=== PATIENT | male | born 1955 | race Caucasian/White ===

== ENCOUNTER 2019-12-09 12:34 | Emergency (ER) | payer MEDICARE, MEDICAID ==
[~2019-12-09] VITALS: Ht 167.6 cm; Wt 91.0 kg
[2019-12-09] MEDS ORDERED: OLAN2.5T3 PO (12:46)
[2019-12-09] MEDS ORDERED: LISI10TA5 PO (12:46)
[2019-12-09] MEDS ORDERED: DULO30CA2 PO (12:46)
[2019-12-09] MEDS ORDERED: DIVA250T4 PO (12:46)
[2019-12-09] MEDS ORDERED: GABA-531 PO (12:46)
[2019-12-09] MEDS ORDERED: ASPI-864 PO (12:46)
[2019-12-09] MEDS ORDERED: ACETAMINOPHEN 325MG TABLET PO ONE (13:30)
[2019-12-09 16:07] VITALS: BP 130/80
== END 2019-12-09 17:27 | disposition home or self-care (01) ==
LOC: ER 12:34
DX: M54.89 Other dorsalgia (principal); I10 Essential (primary) hypertension; E11.9 Type 2 diabetes mellitus without complications; I25.10 Atherosclerotic heart disease of native coronary artery without angina pectoris; Z95.1 Presence of aortocoronary bypass graft; Z98.890 Other specified postprocedural states; Z79.82 Long term (current) use of aspirin; Z79.899 Other long term (current) drug therapy
CPT/HCPCS: 71045; 99283

== ENCOUNTER 2020-05-15 14:41 | Emergency (ER) | payer MEDICARE, MEDICAID ==
[~2020-05-15] VITALS: Ht 167.6 cm; Wt 90.0 kg
[~2020-05-15 14:41] MED LIST: ASPI-864 PO; DIVA250T4 PO; DULO30CA2 PO; GABA-531 PO; LISI10TA5 PO; OLAN2.5T3 PO
[2020-05-15] MEDS ORDERED: ONDANSETRON HCL 4MG/2ML INJ IV STA (15:08)
[2020-05-15] MEDS ORDERED: SODIUM CHLORIDE 0.9% 1,000 ML IV ONE (15:08)
[2020-05-15 16:01] LABS: CHLORIDE 100 mEq/L (98-107)
[2020-05-15 16:02] LABS: BASOPHILS % 0.9 % (0.0-2.0); EOSINOPHILS % 2.1 % (0.0-5.0); HEMATOCRIT. 41.4 % (42.0-52.0); HEMOGLOBIN. 14.1 g/dL (14.0-18.0); LYMPHOCYTES % 42.7 % (20.0-50.0); MEAN CORPUSCULAR HEMOGLOBIN 31.5 pg (28.0-32.0); MEAN CORPUSCULAR VOLUME 92.7 fL (80.0-94.0); MEAN PLATELET VOLUME 8.7 fl (7.4-10.4); NEUTROPHILS % 45.3 % (40.0-76.0); PLATELET 232 x1000/uL (130-400); RED BLOOD CELL COUNT 4.46 mill/uL (4.7-6.1); RED CELL DISTRIBUTION WIDTH 13.8 % (11.6-14.6)
[2020-05-15 16:03] LABS: CLARITY URINE CLEAR (CLEAR); COLOR URINE YELLOW (YELLOW); KETONES URINE NEGATIVE (NEGATIVE); LEUKOCYTE ESTERASE URINE NEGATIVE (NEGATIVE); NITRITE URINE NEGATIVE (NEGATIVE); OCCULT BLOOD URINE NEGATIVE (NEGATIVE); PH URINE 6.5 (4.5-8.0); PROTEIN URINE NEGATIVE (NEGATIVE); SPECIFIC GRAVITY URINE 1.018 (1.005-1.030)
[2020-05-15 16:05] LABS: PROTHROMBIN TIME 10.6 sec (9.6-11.0)
[2020-05-15 17:33] VITALS: BP 154/83
== END 2020-05-15 17:36 | disposition home or self-care (01) ==
LOC: ER 14:41
DX: B34.9 Viral infection, unspecified (principal); Z20.828 Contact with and (suspected) exposure to other viral communicable diseases; E11.9 Type 2 diabetes mellitus without complications; I10 Essential (primary) hypertension; Z88.0 Allergy status to penicillin; Z88.8 Allergy status to other drugs, medicaments and biological substances
CPT/HCPCS: 36415; 71045; 80053; 81003; 83690; 84484; 85025; 85610; 93005; 96360; 99284; J7030; U0003; C9803-CS

== ENCOUNTER 2021-04-18 13:05 | Emergency (ER) | payer MEDICARE, MEDICAID ==
[~2021-04-18] VITALS: Ht 167.6 cm; Wt 88.0 kg
[~2021-04-18 13:05] MED LIST changes: -GABA-531 PO; +GABA-532 PO; +LISI10TA26 PO; -LISI10TA5 PO
[2021-04-18 13:19] VITALS: BP 130/85
== END 2021-04-18 16:00 | disposition left against medical advice (07) ==
LOC: ER 13:05
DX: Z53.21 Procedure and treatment not carried out due to patient leaving prior to being seen by health care provider (principal); R53.1 Weakness; R42 Dizziness and giddiness
CPT/HCPCS: 82962; 99281

== ENCOUNTER 2021-05-23 00:44 | Inpatient (IN) | payer MEDICARE, MEDICAID ==
[~2021-05-23] VITALS: Ht 167.6 cm; Wt 113.9 kg
[2021-05-23] MEDS ORDERED: ASPIRIN 81MG TABLET PO ONE (01:15)
[2021-05-23] MEDS ORDERED: FUROSEMIDE 40MG/4ML VIAL IVP ONE (01:30)
[2021-05-23 01:42] LABS: CHLORIDE 99 mEq/L (98-107)
[2021-05-23 01:45] LABS: EOSINOPHILS % 0.6 % (0.0-5.0); HEMATOCRIT. 41.5 % (42.0-52.0); HEMOGLOBIN. 14.2 g/dL (14.0-18.0); LYMPHOCYTES % 25.1 % (20.0-50.0); MEAN CORPUSCULAR HEMOGLOBIN 31.9 pg (28.0-32.0); MEAN CORPUSCULAR VOLUME 93.2 fL (80.0-94.0); MEAN PLATELET VOLUME 9.1 fl (7.4-10.4); MONOCYTES % 9.3 % (2.0-8.0); PLATELET 215 x1000/uL (130-400); RED BLOOD CELL COUNT 4.46 mill/uL (4.7-6.1)
[2021-05-23] MEDS ORDERED: ENOXAPARIN 40MG/0.4ML SYR SUBCUT SCH (06:45)
[2021-05-23] MEDS ORDERED: CLONIDINE 0.1MG TABLET PO PRN (06:45)
[2021-05-23] MEDS ORDERED: MORPHINE SULFATE 2 MG/ML CPJ (NOT FOR IM USE) IV PRN (06:45)
[2021-05-23] MEDS ORDERED: ACETAMINOPHEN 325MG TABLET PO PRN (06:45)
[2021-05-23] MEDS ORDERED: HYDROCODONE/ACETAMINOPHEN 5/325MG TABLET PO PRN (06:45)
[2021-05-23] MEDS ORDERED: ONDANSETRON HCL 4MG/2ML INJ IV PRN (06:45)
[2021-05-23] MEDS ORDERED: MAGNESIUM/ALUMINUM HYDROXIDE/SIMETHICONE 30ML UDC PO PRN (06:45)
[2021-05-23] MEDS ORDERED: LORAZEPAM 2MG/ML CPJ IV PRN (06:45)
[2021-05-23] MEDS ORDERED: CEFTRIAXONE 1 G PREMIX 50 ML IV SCH (06:45)
[2021-05-23] MEDS ORDERED: DOCUSATE SODIUM 100MG CAPSULE PO PRN (06:45)
[2021-05-23] MEDS ORDERED: GUAIFENESIN 200MG/10ML SUGAR FREE UDC PO PRN (06:45)
[2021-05-23] MEDS ORDERED: IOHEXOL-350 100 ML BOTTLE ONE (06:59)
[2021-05-23] MEDS ORDERED: NALOXONE HCL 0.4MG/ML VIAL IV PRN (07:30)
[2021-05-23] MEDS ORDERED: AMLODIPINE 10MG TABLET PO SCH (09:00)
[2021-05-23] MEDS ORDERED: CEFTRIAXONE SODIUM 1 G/VIAL ONE (09:59)
[2021-05-23] MEDS: ASPIRIN 81MG EC TABLET PO SCH (10:27)
[2021-05-23] MEDS: CEFTRIAXONE 1,000 MG in DEXTROSE 5% WATER 50 ML IV SCH (10:27)
[2021-05-23] MEDS: ENOXAPARIN 30MG/0.3ML SYR SUBCUT SCH ×2 (10:27→21:26)
[2021-05-23] MEDS: AZITHROMYCIN 500 MG in DEXT 5% WATER 250 ML IV SCH (10:28)
[2021-05-23 12:00] VITALS: BP 117/76
[2021-05-23 13:59] VITALS: BP 129/76
[2021-05-23 16:00] VITALS: BP 115/70
[2021-05-23] MEDS ORDERED: IPRATROPIUM/ALBUTEROL 0.5-3(2.5)MG/3ML NEB HHN PRN (18:30)
[2021-05-23] MEDS ORDERED: DEXTROSE 50% WATER 50ML SYRINGE IV PRN (19:30)
[2021-05-23 20:00] VITALS: BP 98/60
[2021-05-23] MEDS: AMLODIPINE 5MG TABLET PO SCH (20:50)
[2021-05-23] MEDS: DULOXETINE HCL 30MG DR CAPSULE PO SCH (21:26)
[2021-05-23] MEDS: OLANZAPINE 2.5MG TABLET PO SCH (21:26)
[2021-05-23] MEDS: ATORVASTATIN CALCIUM 10MG TABLET PO SCH (21:26)
[2021-05-23] MEDS: INSULIN LISPRO 100 UNITS/ML SUBCUT SCH (21:27)
[2021-05-23] MEDS: BLOOD SUGAR DIAGNOSTIC STRIP TEST SCH (21:27)
[2021-05-24 00:28] VITALS: BP 118/70
[2021-05-24 04:00] VITALS: BP 130/84
[2021-05-24 08:00] VITALS: BP 105/71
[2021-05-24] MEDS: ASPIRIN 81MG EC TABLET PO SCH (08:06)
[2021-05-24] MEDS: OLANZAPINE 2.5MG TABLET PO SCH ×2 (08:06→21:00)
[2021-05-24] MEDS: AZITHROMYCIN 500 MG in DEXT 5% WATER 250 ML IV SCH (08:06)
[2021-05-24] MEDS: DIVALPROEX SODIUM 250MG DR TABLET PO SCH ×2 (08:06→17:58)
[2021-05-24] MEDS: CEFTRIAXONE 1,000 MG in DEXTROSE 5% WATER 50 ML IV SCH (08:06)
[2021-05-24] MEDS: LISINOPRIL 10MG TABLET PO SCH (08:07)
[2021-05-24] MEDS: AMLODIPINE 5MG TABLET PO SCH ×2 (08:07→23:01)
[2021-05-24] MEDS: GABAPENTIN 300MG CAPSULE PO SCH ×2 (08:09→17:58)
[2021-05-24] MEDS: ENOXAPARIN 30MG/0.3ML SYR SUBCUT SCH ×2 (08:09→22:39)
[2021-05-24] MEDS: BLOOD SUGAR DIAGNOSTIC STRIP TEST SCH ×4 (08:12→21:00)
[2021-05-24] MEDS: INSULIN LISPRO 100 UNITS/ML SUBCUT SCH ×4 (08:12→23:20)
[2021-05-24] MEDS ORDERED: ASPIRIN 81MG EC TABLET PO SCH (09:00)
[2021-05-24 12:00] VITALS: BP 130/80
[2021-05-24 13:15] LABS: EOSINOPHILS % 0.7 % (0.0-5.0); HEMATOCRIT. 43.4 % (42.0-52.0); HEMOGLOBIN. 14.4 g/dL (14.0-18.0); LYMPHOCYTES % 30.1 % (20.0-50.0); MEAN CORPUSCULAR HEMOGLOBIN 31.3 pg (28.0-32.0); MEAN CORPUSCULAR VOLUME 94.8 fL (80.0-94.0); MEAN PLATELET VOLUME 9.6 fl (7.4-10.4); MONOCYTES % 10.3 % (2.0-8.0); NEUTROPHILS % 57.9 % (40.0-76.0); PLATELET 237 x1000/uL (130-400); RED BLOOD CELL COUNT 4.58 mill/uL (4.7-6.1); RED CELL DISTRIBUTION WIDTH 14.2 % (11.6-14.6)
[2021-05-24 13:23] LABS: CHLORIDE 105 mEq/L (98-107)
[2021-05-24 13:33] LABS: LDL CHOLESTEROL 125 mg/dL (5-100)
[2021-05-24 13:38] LABS: HDL CHOLESTEROL 38 mg/dL (40-59)
[2021-05-24 16:00] VITALS: BP 120/70
[2021-05-24 20:00] VITALS: BP 111/73
[2021-05-24] MEDS: IPRATROPIUM/ALBUTEROL 0.5-3(2.5)MG/3ML NEB HHN SCH (20:58)
[2021-05-24] MEDS: DULOXETINE HCL 30MG DR CAPSULE PO SCH (22:39)
[2021-05-24] MEDS: ATORVASTATIN CALCIUM 10MG TABLET PO SCH (22:40)
[2021-05-25] VITALS: BP 112/75
[2021-05-25] MEDS: IPRATROPIUM/ALBUTEROL 0.5-3(2.5)MG/3ML NEB HHN SCH ×3 (02:38→12:56)
[2021-05-25 04:00] VITALS: BP 115/78
[2021-05-25] MEDS: AZITHROMYCIN 500 MG in DEXT 5% WATER 250 ML IV SCH (05:32)
[2021-05-25 08:00] VITALS: BP 114/73
[2021-05-25] MEDS: BLOOD SUGAR DIAGNOSTIC STRIP TEST SCH ×2 (08:10→12:13)
[2021-05-25] MEDS: INSULIN LISPRO 100 UNITS/ML SUBCUT SCH ×2 (08:11→12:19)
[2021-05-25] MEDS: ASPIRIN 81MG EC TABLET PO SCH (08:14)
[2021-05-25] MEDS: AMLODIPINE 5MG TABLET PO SCH (08:14)
[2021-05-25] MEDS: DIVALPROEX SODIUM 250MG DR TABLET PO SCH (08:14)
[2021-05-25] MEDS: GABAPENTIN 300MG CAPSULE PO SCH (08:14)
[2021-05-25] MEDS: OLANZAPINE 2.5MG TABLET PO SCH (08:14)
[2021-05-25] MEDS: LISINOPRIL 10MG TABLET PO SCH (08:15)
[2021-05-25] MEDS: CEFTRIAXONE 1,000 MG in DEXTROSE 5% WATER 50 ML IV SCH (08:15)
[2021-05-25] MEDS: ENOXAPARIN 30MG/0.3ML SYR SUBCUT SCH (08:16)
[2021-05-25 09:33] LABS: HEMATOCRIT. 42.6 % (42.0-52.0); HEMOGLOBIN. 14.4 g/dL (14.0-18.0); LYMPHOCYTES % 31.3 % (20.0-50.0); MEAN CORPUSCULAR HEMOGLOBIN 32.1 pg (28.0-32.0); MEAN CORPUSCULAR VOLUME 95.3 fL (80.0-94.0); MEAN PLATELET VOLUME 9.7 fl (7.4-10.4); MONOCYTES % 9.4 % (2.0-8.0); NEUTROPHILS % 57.3 % (40.0-76.0); PLATELET 236 x1000/uL (130-400); RED BLOOD CELL COUNT 4.47 mill/uL (4.7-6.1); RED CELL DISTRIBUTION WIDTH 14.1 % (11.6-14.6)
[2021-05-25 09:53] LABS: CHLORIDE 101 mEq/L (98-107)
[2021-05-25] MEDS ORDERED: OMEPRAZOLE 20MG CAPSULE EXTENDED RELEASE PO SCH (12:00)
[2021-05-25 14:27] VITALS: BP 110/63
[2021-05-26] MEDS ORDERED: AZITHROMYCIN 500 MG TABLET PO SCH (11:00)
== END 2021-05-25 16:25 | disposition home or self-care (01) | DRG 871 ==
LOC: ER 00:44 → MICUSO 05:31 → 7WST 10:19 → 6WST 05-24 09:55
PROVIDERS: ADMIT Hospitalist; ATTEND Hospitalist
DX: A41.9 Sepsis, unspecified organism (principal); E43 Unspecified severe protein-calorie malnutrition; J96.01 Acute respiratory failure with hypoxia; J18.9 Pneumonia, unspecified organism; J81.1 Chronic pulmonary edema; Z68.41 Body mass index [BMI] 40.0-44.9, adult; E11.9 Type 2 diabetes mellitus without complications; E78.5 Hyperlipidemia, unspecified; I10 Essential (primary) hypertension; N28.89 Other specified disorders of kidney and ureter; I25.10 Atherosclerotic heart disease of native coronary artery without angina pectoris; Z20.822 Contact with and (suspected) exposure to COVID-19; Z82.3 Family history of stroke; Z86.79 Personal history of other diseases of the circulatory system; Z95.3 Presence of xenogenic heart valve
CPT/HCPCS: 36415; 71045; 71275; 76700; 80048; 80053; 80061; 82962; 83036; 83880; 84484; 85025; 85379; 87426; 93005; 93306; 93970; 94640; 99285; J0456; J0696; J1650; J1815; J1940; J2270; J7060; Q9967; U0003; U0005